=== PATIENT | female | born 1950 | race Caucasian/White ===

== ENCOUNTER → 2017-10-07 | Day surgery (SDC) | payer MEDICARE, BC ==
[~2017-10-07] MED LIST: AMLODIPINE BESY10 MG PO; BENICAR40 MG PO; CALCIUM600 MG PO; CIPROFLOXACIN250 MG PO; DEXAMETHASONE SOD PHOS INJ 4 MG/ML VIAL ONE; ESCITALOPRAM OX10 MG PO; FENTANYL CITRATE/PF 100MCG/2 ML INJ ONE; GENTAMICIN 80MG/NS 100 ML 100 ML IV ONE; IOPAMIDOL 610MG/1ML 300 MG/ML VIAL IV ONE; IRON PO; LEVOTHYROXINE25 MCG PO; LIDOCAINE HCL 2% LOCAL INJ 5 ML SDV VIAL INJ ONE; MEGASTROL PO; MEGESTROL ACETA40 MG PO; MYRBETRIQ50 MG PO; ONDANSETRON HCL INJ 2 MG/ML VIAL ONE; PROPOFOL IV EMULSION 10 MG/ML 20 ML VIAL ONE; SEVOFLURANE INHAL SOLN 250 ML PEN BTL ONE; SIMVASTATIN20 MG PO; ULTRAM 50MG50 MG PO; VITAMIN B-121000 MCG PO; VITAMIN D250000 UNIT PO
--- NOTE | 2017-10-07 08:16 | Diagnostic Imaging Report ---
PROCEDURE: X-RAY CHEST, TWO VIEWS COMPARISON: None. INDICATIONS: PREOPERATIVE CHEST XRAY FOR STENT SURGERY FINDINGS: Lungs are well-inflated. Trace linear opacity in the lingula which may reflect scar or subsegmental atelectasis. No consolidation, pleural effusion, or pneumothorax. Tortuosity and atherosclerotic calcification of the thoracic aorta. Normal heart size. No pulmonary edema. No acute osseous abnormality. Presumed chronic anterior compression deformity of T12 and L1, with vertebroplasty cement within the L1 vertebral body. Probable ureteral stent is partially visualized on the lateral radiograph, as are multiple upper abdominal surgical clips likely related to prior cholecystectomy. CONCLUSION: No acute cardiopulmonary abnormality. Dictated by: Abrahan Michel M.D. on 10/07/2017 at 8:15 Electronically approved by: Abrahan Michel M.D. on 10/07/2017 at 8:15
--- OUTSIDE RECORDS SUMMARY | 2017-10-07 09:06 | XMS REPORT | Clinical Summary ---
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 Disp. Refills Start End Date Status Date traMADol (ULTRAM) 50 mg Take 50 mg by mouth 4 Active tablet (four) times a day. simvastatin (ZOCOR) 20 MG Take 20 mg by mouth Active tablet nightly. olmesartan (BENICAR) 20 Take 20 mg by mouth Active MG tablet nightly. mirabegron (MYRBETIQ) 50 Take 50 mg by mouth Active mg tablet extended nightly. release 24 hr megestrol (MEGACE) 40 MG Take 40 mg by mouth 3 11/06/19 Active tablet (three) times a day. 16 levothyroxine (SYNTHROID, Take 25 mcg by mouth Active LEVOXYL) 25 mcg tablet daily. escitalopram (LEXAPRO) 10 Take 10 mg by mouth Active MG tablet daily. calcium carbonate Take 600 mg by mouth 2 Active (OS-NATHALIA) 600 mg calcium (two) times a day with (1,500 mg) tablet meals. iron, carbonyl, 45 mg Take 45 mg by mouth Active tablet daily. CYANOCOBALAMIN, VITAMIN Take 500 mcg by mouth 3 Active B-12, (VITAMIN B-12 ORAL) (three) times daily after meals. Tuesdays amLODIPine (NORVASC) 10 Take 10 mg by mouth Active mg tablet daily. ergocalciferol (VITAMIN Take 50,000 Units by Active D2) 50,000 unit capsule mouth once a week. Pt takes on tuesdays ciprofloxacin HCl (CIPRO) Take 250 mg by mouth Active 250 MG tablet daily. cyanocobalamin 1000 MCG Take 1,200 mcg by mouth 05/03/20 Discontin tablet daily. 17 ued cholecalciferol, vitamin Take 5,000 Units by mouth 06/16/20 Discontin D3, (VITAMIN D3) 1,000 daily. 17 ued unit tablet ascorbic acid, vitamin C, Take 500 mg by mouth 06/16/20 Discontin (VITAMIN C) 500 MG tablet daily. 17 ued amLODIPine (NORVASC) 5 mg Take 5 mg by mouth daily. 06/16/20 Discontin tablet 17 ued cefdinir (OMNICEF) 300 MG Take 1 capsule (300 mg 14 capsule 0 01/22/20 capsule total) by mouth 2 (two) 17 17 times a day for 7 days. cholecalciferol, vitamin Take 1,000 Units by mouth 06/16/20 Discontin D3, (VITAMIN D3) 1,000 3 (three) times a day. 17 ued unit tablet HYDROcodone-acetaminophen Take 1 tablet by mouth 30 tablet 0 05/07/20 06/06/20 (NORCO) 5-325 mg per every 4 (four) hours as 17 17 tablet needed for moderate pain for up to 30 days. Max Daily Amount: 6 tablets nitrofurantoin, Take 1 capsule (100 mg 20 capsule 0 05/07/20 macrocrystal-monohydrate, total) by mouth 2 (two) 17 17 (MACROBID) 100 MG capsule times a day for 10 days. docusate sodium (COLACE) Take 1 capsule (100 mg 30 capsule 0 05/07/20 06/06/20 100 MG capsule total) by mouth daily for 17 17 30 days. cephalexin (KEFLEX) 500 Take 1 capsule (500 mg 28 capsule 0 05/09/20 05/16/20 MG capsule total) by mouth 4 (four) 17 17 times a day for 7 days. phenazopyridine Take 1 tablet (200 mg 6 tablet 0 05/09/20 05/12/20 (PYRIDIUM) 200 MG tablet total) by mouth 3 (three) 17 17 times a day for 3 days. dicyclomine (BENTYL) 20 Take 1 tablet (20 mg 60 tablet 0 09/23/20 10 /23/20 mg tablet total) by mouth 2 (two) 17 17 times a day for 30 days. ondansetron ODT (ZOFRAN Take 1 tablet (4 mg 20 tablet 0 05/09/20 Discontin ODT) 4 MG disintegrating total) by mouth every 8 17 17 ued tablet (eight) hours as needed for nausea or vomiting for up to 30 doses. metFORMIN (GLUCOPHAGE) Take 500 mg by mouth 2 07/14/20 Discontin 500 mg tablet (two) times a day with 17 ued meals. ciprofloxacin HCl (CIPRO) Take 250 mg by mouth 06/18/20 Discontin 250 MG tablet daily. 17 ued acetaminophen-codeine Take 1 tablet by mouth 30 tablet 0 06/18/20 (TYLENOL WITH CODEINE #3) every 6 (six) hours as 17 17 300-30 mg per tablet needed for moderate pain for up to 7 days. fluconazole (DIFLUCAN) Take 1 tablet (100 mg 6 tablet 0 06/18/2004/05 100 MG tablet total) by mouth daily for 17 17 6 days. cefdinir (OMNICEF) 300 MG Take 1 capsule (300 mg 14 capsule 0 06/25/20 capsule total) by mouth 2 (two) 17 17 times a day for 7 days. Active Problems Problem Noted Date Sepsis 06/16/2017 Pyelonephritis 05/03/2017 Urinary tract infection 01/13/2017 Encounters Date Type Specialty Care Team Description 09/23/2017 Lab Lab Agapito Carreno, Preop examination (Primary Dx) 07/14/2017 [facility] Radiology Colt Briggs MD Acquired polyneuropathy Encounter 07/14/2017 Ancillary Colt Burgos MD Orders 07/06/2017 [facility] Radiology Colt Briggs MD Encounter 07/06/2017 Hospital Radiology Colt Briggs MD Encounter 07/06/2017 Transcribe Colt Burgos MD Acquired polyneuropathy Orders (Primary Dx) 07/06/2017 Procedure Pass Radiology 07/06/2017 Ancillary Radiology Colt Briggs MD Orders 06/17/2017 Anesthesia General Surgery Delta Real MD Event 06/17/2017 Procedure Pass General Surgery 06/17/2017 Surgery General Surgery Agapito Carreno, Cysto Stent CHANGE-RIGHT MD 06/16/2017 [facility] General Internal Medicine Jacob Marcelo MD Sepsis, due to - Encounter Araseli Jeter MD unspecified organism 06/18/2017 (Primary Dx); Acute UTI; Acute kidney injury; Stricture or kinking of ureter 05/09/2017 Emergency Emergency Medicine Anuja Shields, Urinary tract infection DO without hematuria, site unspecified (Primary Dx); Nausea, vomiting and diarrhea; Weakness 05/03/2017 [facility] General Surgery Joe Jessica, Pyelonephritis (Primary - Encounter MD Dx); 05/07/2017 Jacob Ulloa MD Flank pain; Artemio Ty MD Nausea and vomiting, intractability of vomiting not specified, unspecified vomiting type 03/10/2017 [facility] Surgery Agapito Carreno, Hydronephrosis with Encounter MD ureteral stricture 03/10/2017 Anesthesia General Surgery Delta Real MD Event 03/10/2017 Procedure Pass General Surgery 03/10/2017 Surgery General Surgery Agapito Carreno, Cystoscopy , With Ureteral MD Stent CHANGE - RIGHT SIDE 03/05/2017 Pre-Admit Pre-Admission Testing Agapito Carreno, Preoperative testing Testing (Primary Dx) Appointment 01/13/2017 [facility] General Internal Medicine Vargas Lozoya MD Urinary tract infection, - Encounter Araseli Jeter MD site unspecified (Primary 01/14/2017 Dx); Sepsis, due to unspecified organism 11/04/2016 [facility] General Surgery Agapito Carreno, Encounter 10/30/2016 Orders Only General Surgery Agapito Carreno MD after 10/06/2016 Immunizations Name Dates Previously Given Next Due FLUCELVAX QUAD PF (0.5mL 05/06/2017 syringe) Family History Medical History Relation Name Comments No Known Problems Father No Known Problems Mother No Known Problems Sister Relation Name Status Comments Father Mother Sister Social History Tobacco Use Types Packs/Day Years Used Date Never Smoker Smokeless Tobacco: Never Used Alcohol Use Drinks/Week oz/Week Comments Yes SOCIALLY Sex Assigned at Date Recorded Not on file Last Filed Vital Signs Vital Sign Reading Time Taken Blood Pressure 144/67 07/14/2017 1:40 PM LENS GRINDING MACHINE OPERATOR Pulse 96 07/14/2017 1:40 PM LENS GRINDING MACHINE OPERATOR Temperature 36.3 C (97.4 F) 07/14/2017 1:40 PM LENS GRINDING MACHINE OPERATOR Respiratory Rate 17 07/14/2017 1:40 PM LENS GRINDING MACHINE OPERATOR Oxygen Saturation 98% 07/14/2017 1:40 PM LENS GRINDING MACHINE OPERATOR Inhaled Oxygen - - Concentration Weight 74.8 kg (165 lb) 07/14/2017 9:55 AM LENS GRINDING MACHINE OPERATOR Height 162.6 cm (5' 4") 07/14/2017 9:55 AM LENS GRINDING MACHINE OPERATOR Body Mass Index 28.32 07/14/2017 9:55 AM LENS GRINDING MACHINE OPERATOR Plan of Treatment Health Maintenance Due Date Last Done Comments COLONOSCOPY 1998 MAMMOGRAM 1998 ZOSTER VACCINE 2008 PNEUMOCOCCAL 2013 POLYSACCHARIDE VACCINE AGE 65 AND OVER PNEUMOCOCCAL-13 2013 INFLUENZA VACCINE Completed 05/06/2017 Implants Implanted Type Area Battery Parts Assembler Device Expiration Model / Identifier Date Serial / Lot Stent Uretl Inlay Ethel 6fr 26cm Surgical Right: [employer] 2019 [id number] / W/ Nicore Herrera Gw Ltxf - [id number] Stents Ureter, DIVISION / Implanted: Qty: 1 on 03/10/2017 by Sunita [id number] Agapito Carreno MD Stent Ureteral Inlay Ethel 6.0fr Surgical Right: [employer] [id number] / 26cm Without Guidewire - [id number] Stents Ureter, DIVISION / Implanted: Qty: 1 on 06/17/2017 by Sunita [id number] Agapito Carreno MD Procedures Procedure Name Priority Date/Time Associated Diagnosis Comments NE AN ELECTIVE Routine 06/17/2017 SUPRAGLOTTIC AIRWAY 2:22 PM CDT Procedure Note - Lindsey Taylor MD - 06/17/2017 2:05 PM CDT Airway Date/Time: 06/17/2017 1:55 PM Performed by: MANUELA MANN Authorized by: MANUELA MANN Location: OR Urgency: Elective Difficult Airway: No Anesthesio logist: LINDSEY TAYLOR Resident/C RNA: MANUELA MANN Performed by: resident/C RNA Preoxygena malik with 100% O2: Yes C-spine Precaution s Maintained Throughout : Yes Mask Ventilatio n: Not attempted Final Airway Type: Supraglott ic airway Final LMA: Classic LMA Size: 3 Number of Attempts at Approach: 1 NE CRITICAL CARE, E/M Routine 06/16/2017 Results for this 30-74 MINUTES 4:20 PM CDT procedure are in the results section. NE AN ELECTIVE Routine 03/10/2017 SUPRAGLOTTIC AIRWAY 4:02 PM CDT Procedure Note - Delta Real MD - 03/10/2017 4:02 PM CDT Airway Date/Time: 03/10/2017 4:00 PM Performed by: DELTA REAL Authorized by: DELTA REAL Location: OR Urgency: Elective Performed by: anesthesio logist Preoxygena malik with 100% O2: Yes C-spine Precaution s Maintained Throughout : Yes Mask Ventilatio n: Easy mask Final Airway Type: Supraglott ic airway Final LMA: Classic LMA Size: 4 Number of Attempts at Approach: 1 after 10/06/2016 Results * ECG 12 lead (09/23/2017 10:32 AM) Only the most recent of 3 results within the time period is included. Component Value Ref Range Ventricular rate 79 Atrial rate 79 NE interval 156 QRSD interval 80 QT interval 364 QTC interval 417 P axis 1 27 QRS axis 1 32 T wave axis 54 EKG impression Normal sinus rhythm-Low voltage QRS-Borderline ECG-In automated comparison with ECG of 16-JUN-2017 00:15,-Non-specific change in ST segment in Inferior leads- Specimen Performing Laboratory [facility] [address] [place] [id number] * Surgical pathology request (07/14/2017 12:08 PM) Only the most recent of 3 results within the time period is included. Component Value Ref Range Surgical pathology report See link below for PDF Lab Report Result status This is Final Report to [id number] Specimen Performing Laboratory [facility] [address] [place] [address] * IR Kyphoplasty Lumbar (07/14/2017 11:48 AM) Specimen Performing Laboratory [facility] [address] [place] [address] Narrative VERTEBRAL AUGMENTATION OF L1 EXAMINATION:IR KYPHOPLASTY FST VERT BODY LUMBA FLUOROSCOPIC-GUIDED CEMENT AUGMENTATION AND INTERNAL FIXATION OF L1 COMPRESSION FRACTURE WITH VERTEBROPLASTY. CLINICAL HISTORY:G62.9 Polyneuropathyunspecified, G62.9 COMPARISON:None. CLINICAL HISTORY:Back pain. MRI shows acute compression Fracture of L1 level. EXAMINATIONIR KYPHOPLASTY FST VERT BODY LUMBA PREOPERATIVE DIAGNOSIS: Osteoporotic compression fracture of L1 vertebral body with severe back pain. POSTOPERATIVE DIAGNOSIS:Same. BLOOD LOSS:Less than 10 cc COMPLICATIONS:None. CONSENT: After discussion of the radiographic findings and the compression fracture of L1 vertebral body with patient and her family, we have decided to treat the compression fracture with Percutaneous vertebroplasty for fracture reduction and internal fixation. The patient and the members of the immediate family understood the risks and benefits of the procedure. Informed consent was obtained. Conscious sedation:After the risks and benefits of conscious sedation were discussed, midazolam and fentanyl were administered intravenously. Throughout the conscious sedation duration, the patient was continuously monitored by a registered nurse. The physician intraservice [id number] time with the patient was 18 minutes. PROCEDURE DESCRIPTION: The patient was brought to the Fluoroscopy Suite and placed on the fluoroscopy table in prone position. The thoracolumbar region was prepped and draped in standard sterile fashion. The imaging intensifiers were placed in both AP and lateral fluoroscopic planes. Transpedicular approach was utilized to access the L1 vertebral compression fractures on the left. The skin over the left pedicleof L1 level were infiltrated with 2% buffered lidocaine. Deep infiltration into the periosteum of L1 was achieved. A 10 gauge entry needle was placed into the posterior aspect of the body of L1 level via transpedicular approach. Positioning was confirmed in both AP and lateral planes simultaneously. Following satisfactory placement of the needles, the Stylet was removed and a cavity was created using osteotomeand bone biopsy was obtained of L1.Subsequently, under fluoroscopic imaginginternal fixation was achieved through injection of bone cement, namely polymethylmethacrylate (PMMA) was total of 4 cc injected. There was no evidence of cement extravasation or any complication. Proper cement distribution in the fractured L1 vertebral body was achieved. The cannulas were then removed. POST-PROCEDURE: All incisions were closed with Steri-Strips and pressure dressing. The patient was kept in the prone position for approximately 10 minutes. The patient was then turned supine, monitored briefly and returned to the post-procedure monitoring unit. The patient was awake and moving all extremities and at this time showed no neurologic deficit. No complications were encountered. Blood loss was noted to be minimal. IMPRESSION: Successful uncomplicated fluoroscopic-guided Vertebral augmentation, internal fixation and biopsy of K1ixuncytrwev fracture. There was adequate cement distribution in the fracture body and no evidence of complications. Fluoroscopy time was 6.9 minutes Total fluoroscopic exposure images was 12 images. Total radiation exposure was 186 mGy. [facility] [id number] Procedure Note Hm Interface, Radiology Results Incoming - 07/14/2017 2:34 PM LENS GRINDING MACHINE OPERATOR VERTEBRAL AUGMENTATION OF L1 EXAMINATION: IR KYPHOPLASTY FST VERT BODY LUMBA FLUOROSCOPIC-GUIDED CEMENT AUGMENTATION AND INTERNAL FIXATION OF L1 COMPRESSION FRACTURE WITH VERTEBROPLASTY. CLINICAL HISTORY: G62.9 Polyneuropathy unspecified, G62.9 COMPARISON: None. CLINICAL HISTORY: Back pain. MRI shows acute compression Fracture of L1 level. EXAMINATION IR KYPHOPLASTY FST VERT BODY LUMBA PREOPERATIVE DIAGNOSIS: Osteoporotic compression fracture of L1 vertebral body with severe back pain. POSTOPERATIVE DIAGNOSIS: Same. BLOOD LOSS: Less than 10 cc COMPLICATIONS: None. CONSENT: After discussion of the radiographic findings and the compression fracture of L1 vertebral body with patient and her family, we have decided to treat the compression fracture with Percutaneous vertebroplasty for fracture reduction and internal fixation. The patient and the members of the immediate family understood the risks and benefits of the procedure. Informed consent was obtained. Conscious sedation: After the risks and benefits of conscious sedation were discussed, midazolam and fentanyl were administered intravenously. Throughout the conscious sedation duration, the patient was continuously monitored by a registered nurse. The physician intraservice [id number] time with the patient was 18 minutes. PROCEDURE DESCRIPTION: The patient was brought to the Fluoroscopy Suite and placed on the fluoroscopy table in prone position. The thoracolumbar region was prepped and draped in standard sterile fashion. The imaging intensifiers were placed in both AP and lateral fluoroscopic planes. Transpedicular approach was utilized to access the L1 vertebral compression fractures on the left. The skin over the left pedicleof L1 level were infiltrated with 2% buffered lidocaine. Deep infiltration into the periosteum of L1 was achieved. A 10 gauge entry needle was placed into the posterior aspect of the body of L1 level via transpedicular approach. Positioning was confirmed in both AP and lateral planes simultaneously. Following satisfactory placement of the needles, the Stylet was removed and a cavity was created using osteotome and bone biopsy was obtained of L1.Subsequently, under fluoroscopic imaging internal fixation was achieved through injection of bone cement, namely polymethylmethacrylate (PMMA) was total of 4 cc injected. There was no evidence of cement extravasation or any complication. Proper cement distribution in the fractured L1 vertebral body was achieved. The cannulas were then removed. POST-PROCEDURE: All incisions were closed with Steri-Strips and pressure dressing. The patient was kept in the prone position for approximately 10 minutes. The patient was then turned supine, monitored briefly and returned to the post-procedure monitoring unit. The patient was awake and moving all extremities and at this time showed no neurologic deficit. No complications were encountered. Blood loss was noted to be minimal. IMPRESSION: Successful uncomplicated fluoroscopic-guided Vertebral augmentation, internal fixation and biopsy of L1 compression fracture. There was adequate cement distribution in the fracture body and no evidence of complications. Fluoroscopy time was 6.9 minutes Total fluoroscopic exposure images was 12 images. Total radiation exposure was 186 mGy. [id number] * Estimated GFR (07/14/2017 9:48 AM) Only the most recent of 13 results within the time period is included. Component Value Ref Range GFR Non Af Amer 26 (A) mL/min/1.73 m2 GFR Af Amer 32 (A) mL/min/1.73 m2 Comment: Chronic kidney disease: <60 mL/min/1.73m2 Kidney failure: <15 mL/min/1.73m2 The estimated GFR is calculated from the IDMS-traceable Modification of Diet in Renal Disease Equation. The accuracy of the calculation is poor when the creatinine is normal. Calculated values >90 mL/min/1.73m2 are not reported. This equation has not been validated in children (<18 years), women, the elderly (>70 years), or ethnic groups other than Caucasians and Americans. Specimen Performing Laboratory Plasma specimen [facility] [address] [place] [address] * Partial thromboplastin time, activated (07/14/2017 9:48 AM) Only the most recent of 4 results within the time period is included. Component Value Ref Range PTT 38.8 (H) 23.0 - 36.0 sec Comment: PTT therapeutic range for unfractionated heparin is 61.0-112.0 seconds which corresponds to Anti-Xa 0.3-0.7 U/ml. Note: Change in Panic Value The PTT Panic Value is changing from 110 sec. to 100 sec. due to new instrumentation and reagents. Correlation studies have been performed to validate this result. Specimen Performing Laboratory Blood [facility] [address] [place] [address] * Prothrombin time with INR (07/14/2017 9:48 AM) Only the most recent of 6 results within the time period is included. Component Value Ref Range Prothrombin time 13.8 12.0 - 15.0 sec INR 1.05 0.92 - 1.12 Comment: For patients on anticoagulant therapy, reference ranges below: Indication: INR Value Treatment of Venous Thrombosis, 2.0-3.0 pulmonary emboli, or prophylaxis of a venous thrombosis, or systemic emboli. High dose, high risk patients 3.0-4.5 with mechanical valves. NOTE: INR values over 3.0 are sometimes associated with gastrointestinal hemorrhage, especially values over 4.0. Specimen Performing Laboratory Blood [facility] [address] [place] [address] * CBC with platelet and differential (07/14/2017 9:48 AM) Only the most recent of 13 results within the time period is included. Component Value Ref Range WBC 6.6 4.2 - 11.0 k/uL RBC 3.62 (L) 4.04 - 5.86 m/uL HGB 11.2 (L) 11.5 - 15.3 g/dL HCT 34.9 34.0 - 45.0 % MCV 96.4 80.0 - 98.0 fL MCH 30.9 27.0 - 34.0 pg MCHC 32.1 31.5 - 36.5 g/dL RDW - SD 51.9 (H) 37.0 - 51.0 fL MPV 9.7 7.4 - 10.4 fL Platelet count 243 150 - 400 k/uL Nucleated RBC 0.00 /100 WBC Neutrophils 59.5 36.0 - 66.0 % Lymphocytes 26.1 24.0 - 44.0 % Monocytes 8.9 (H) 0.0 - 6.0 % Eosinophils 4.1 0.0 - 6.0 % Basophils 0.9 0.0 - 1.2 % Immature granulocytes 0.5 0.0 - 1.0 % Specimen Performing Laboratory Blood [facility] [address] [place] [address]. [place] [id number] * Basic metabolic panel (07/14/2017 9:48 AM) Only the most recent of 9 results within the time period is included. Component Value Ref Range Sodium 141 135 - 150 mEq/L Potassium 4.6 3.5 - 5.0 mEq/L Chloride 108 100 - 109 mEq/L CO2 25 24 - 32 mmol/L Anion gap 8 7 - 15 mEq/L Comment: Starting from November , anion gap calculation no longer incorporates potassium. Please note the change. BUN 34 (H) 7 - 18 mg/dL Creatinine 1.9 (H) 0.8 - 1.5 mg/dL Glucose 113 (H) 65 - 100 mg/dL Calcium 9.8 8.6 - 10.7 mg/dL Specimen Performing Laboratory Plasma specimen [facility] [address] [place] [address] * MRI Spine External Study (07/03/2017 12:38 PM) [place] [address] Narrative This exam was not acquired at a [facility]ologist facility and has not been interpreted by a Scientologist Provider.The exam was imported into our imaging system for comparisons purposes. * XR Spine External Study (06/25/2017 12:26 PM) [place] [address] Narrative This exam was not acquired at a [facility] facility and has not been interpreted by a Scientologist Provider.The exam was imported into our imaging system for comparisons purposes. * POC glucose (06/18/2017 11:18 AM) Only the most recent of 9 results within the time period is included. Component Value Ref Range POC glucose 122 (H) 65 - 100 mg/dL Comment: Meter ID: [id number] Grain Weigher: Samantha Tang Specimen Performing Laboratory [facility] [address] [place], [place] [id number] * ECG ED Preliminary Interpretation - NOT AN ORDER (06/16/2017 4:20 PM) Wei Marcelo MD 06/16/20174:20 PM ECG ED Preliminary Interpretation - Not an Order Performed by: JACOB MARCELO Authorized by: JACOB MARCELO ECG reviewed by ED Physician in the absence of a engineering mgr: yes Previous ECG: Previous ECG:Unavailable Interpretation: Interpretation: normal Rate: ECG rate assessment: normal Rhythm: Rhythm: sinus rhythm Ectopy: Ectopy: none QRS: QRS axis:Normal QRS intervals:Normal Conduction: Conduction: normal ST segments: ST segments:Normal T waves: T waves: inverted Inverted:III * Consult to Sepsis Response Team (06/16/2017 4:20 PM) Only the most recent of 2 results within the time period is included. Narrative Jacob Marcelo MD 06/16/20174:20 PM Consult to Sepsis Response Team Performed by: JACOB MARCELO Authorized by: JACOB MARCELO Sepsis Clinical Assessment SIRS Criteria SIRS criteria met: Heart rate > 90 bpm and WBC > 12 K/mcL Organ Dysfunction Organ dysfunction criteria met: Creatinine > 2.0 mg/dL and Lactate > 2.0 mmol/L Sepsis Assessment Clinical suspicion of sepsis?: Yes Sepsis staging:Sepsis Sepsis protocol started?Yes Where did the protocol start?:ED Started Sepsis Related Vitals Heart rate: 102 Temperature: 99.2 F Respiratory rate: 18 Blood pressure: 166/72 Altered mental status: WBC (k/uL) Date Value 06/16/2017 13.3 (H)05/09/2017 7.7 Weight-Based Fluid Bolus Calculation The recommended weight-based bolus volume: 2,244 mL (dosing weight) Please refer to the MAR for actual med/fluid administrations. * CRITICAL CARE (06/16/2017 4:20 PM) Narrative Jacob Marcelo MD 06/16/20174:20 PM Critical Care Performed by: JACOB MARCELO Authorized by: JACOB MARCELO Critical care provider statement: Critical care time (minutes):35 Critical care start time:06/16/2017 2:05 AM Critical care end time:06/16/2017 2:40 AM Critical care time was exclusive of:Separately billable procedures and treating other patients Critical care was necessary to treat or prevent imminent or life-threatening deterioration of the following conditions:Sepsis, dehydration and renal failure Critical care was time spent personally by me on the following activities:Ordering and performing treatments and interventions, ordering and review of laboratory studies, ordering and review of radiographic studies, pulse oximetry, re-evaluation of patient's condition, review of old charts, examination of patient, evaluation of patient's response to treatment, discussions with primary provider and discussions with consultants Robert 'yes' if you are taking over critical care for this patient from another provider.: no * Lactic acid level (06/16/2017 6:41 AM) Only the most recent of 4 results within the time period is included. Component Value Ref Range Lactic acid 2.0 0.5 - 2.2 mmol/L Comment: Results called to and read back by EBENEZER DE LEON RN, at 07:41 06/16/2017 by [email or web address] TOLD BY VISUAL AID EXPERT TO CALL NURSE, VISUAL AID EXPERT WAS IN A CODE. Specimen Performing Laboratory Blood [facility] [address] [place] [address] * Urinalysis screen and microscopy, with reflex to culture (06/16/2017 4:19 AM) Only the most recent of 4 results within the time period is included. Component Value Ref Range Specimen site Catheterized Color, UA Straw Appearance, UA Clear Specific gravity, UA 1.015 1.001 - 1.035 pH, UA 5.0 5.0 - 8.5 Protein, UA Negative Negative Glucose, UA Negative Negative Ketones, UA Negative Negative Bilirubin, UA Negative Negative Blood, UA Small (A) Negative Nitrite, UA Negative Negative Urobilinogen, UA Negative <2.0 Leukocyte esterase, UA Moderate (A) Negative Epithelial cells, UA Few /HPF Round epithelial cells, Few 0 - 1 /HPF UA WBC, UA 36 (H) 0 - 5 /HPF RBC, UA 7 (H) 0 - 5 /HPF Bacteria, UA None seen None seen WBC clumps, UA Few (A) Yeast, UA None seen Yeast with pseudohyphae, None seen UA Specimen Performing Laboratory Urine [facility] [address] [place] [address] * Gram stain (06/16/2017 4:19 AM) Only the most recent of 4 results within the time period is included. Component Value Ref Range Gram stain result Few WBC's No organisms seen Comment: Specimen Information Specimen Source: Urine Specimen Site: See UA Specimen Performing Laboratory Urine [facility] DEPARTMENT OF PATHOLOGY AND GENOMIC MEDICINE [address] [place] [address] * Urine culture (06/16/2017 4:19 AM) Only the most recent of 4 results within the time period is included. Component Value Ref Range Urine culture isolate Yeast 10-1 cfu/ml (A) Comment: Specimen Information Specimen Source: Urine Specimen Site: See UA Urine culture isolate Gram positive luis m 10-3 cfu/ml (A) Specimen Performing Laboratory Urine [facility] DEPARTMENT OF PATHOLOGY AND GENOMIC MEDICINE [address] [place] [address] * Blood culture, aerobic & anaerobic (06/16/2017 4:05 AM) Only the most recent of 6 results within the time period is included. Component Value Ref Range Blood culture isolate No growth after 5 days of incubation. Comment: Specimen Information Specimen Source: Blood Specimen Site: Peripheral Forearm Right Specimen Performing Laboratory Blood [facility] DEPARTMENT OF PATHOLOGY AND GENOMIC MEDICINE [address] [place] [address] * CT Abdomen Pelvis Wo Contrast (06/16/2017 1:51 AM) Only the most recent of 2 results within the time period is included. Specimen Performing Laboratory [facility] [address] [place] [address] Narrative EXAMINATION:CT ABDOMEN PELVIS WO CONTRAST CLINICAL HISTORY:hx of ureteral obstruction and sepsis now with recurrent symptoms TECHNIQUE: Multiple axial images of the abdomen and pelvis were obtained without intravenous administration of iodinated contrast. Sagittal and coronal computerized reformatted images were also obtained. The lack of intravenous contrast reduces the sensitivity of detecting solid organ disease. CT imaging was performed with iterative reconstruction technique and/or automated exposure control to reduce radiation dose. COMPARISON:05/03/2017 IMPRESSION: Mild bibasilar atelectasis/scarring. In the right lower lobe, a 4 mm nodule is identified. Just adjacent, a 3 mm nodule is seen. In the left lower lobe, a 6 mm nodule is seen. These nodules are stable since 07/30/2016. Coronary artery calcifications are identified. Patient is status post cholecystectomy. Liver, spleen, pancreas, adrenal glands are normal. A right double-J internal ureteral stent is identified. There is right hydronephrosis that has increased since 05/03/2017. These findings raise suspicion for urinary tract infection and/or stent failure. Left kidney and ureter are normal. Bladder is unremarkable. Trace fluid is seen in the pelvis. No free intraperitoneal air. Atherosclerotic vascular calcifications are seen. A few diverticula are seen without diverticulitis. The appendix is normal. No gastrointestinal tract obstruction. No acute osseous abnormalities. Chronic bilateral pars defects are seen of L5. Old compression deformity of superior endplate of L4 is unchanged since prior exam. CONCLUSION: Right double-J internal ureteral stent is identified. Right-sided hydronephrosis has increased since 05/03/2017. These findings raise concern for urinary tract infection and/or stent failure. A few nodules are seen in the lung bases, the largest is in the left lower lobe measuring 6 mm. A 12 month follow-up CT chest is recommended to assess stability. [facility]-[id number] Procedure Note Hm Interface, Radiology Results Incoming - 06/16/2017 2:23 AM CDT EXAMINATION: CT ABDOMEN PELVIS WO CONTRAST CLINICAL HISTORY: hx of ureteral obstruction and sepsis now with recurrent symptoms TECHNIQUE: Multiple axial images of the abdomen and pelvis were obtained without intravenous administration of iodinated contrast. Sagittal and coronal computerized reformatted images were also obtained. The lack of intravenous contrast reduces the sensitivity of detecting solid organ disease. CT imaging was performed with iterative reconstruction technique and/or automated exposure control to reduce radiation dose. COMPARISON: 05/03/2017 IMPRESSION: Mild bibasilar atelectasis/scarring. In the right lower lobe, a 4 mm nodule is identified. Just adjacent, a 3 mm nodule is seen. In the left lower lobe, a 6 mm nodule is seen. These nodules are stable since 07/30/2016. Coronary artery calcifications are identified. Patient is status post cholecystectomy. Liver, spleen, pancreas, adrenal glands are normal. A right double-J internal ureteral stent is identified. There is right hydronephrosis that has increased since 05/03/2017. These findings raise suspicion for urinary tract infection and/or stent failure. Left kidney and ureter are normal. Bladder is unremarkable. Trace fluid is seen in the pelvis. No free intraperitoneal air. Atherosclerotic vascular calcifications are seen. A few diverticula are seen without diverticulitis. The appendix is normal. No gastrointestinal tract obstruction. No acute osseous abnormalities. Chronic bilateral pars defects are seen of L5. Old compression deformity of superior endplate of L4 is unchanged since prior exam. CONCLUSION: Right double-J internal ureteral stent is identified. Right-sided hydronephrosis has increased since 05/03/2017. These findings raise concern for urinary tract infection and/or stent failure. A few nodules are seen in the lung bases, the largest is in the left lower lobe measuring 6 mm. A 12 month follow-up CT chest is recommended to assess stability. [facility]-[id number] * Troponin (06/16/2017 1:12 AM) Component Value Ref Range Troponin <0.01 0.00 - 0.60 ng/mL Comment: 0.11 - 1.49 ng/ml May indicate increased risk of acute coronary syndrome. >=1.5 ng/ml Consistent with acute myocardial infarction. The diagnostic value of a single normal or non-diagnostic result is questionable. Serial samples at 2-6 hour intervals are required to rule out acute myocardial injury. Specimen Performing Laboratory Plasma specimen [facility] [address] [place] [address] * Lipase level (06/16/2017 1:12 AM) Only the most recent of 2 results within the time period is included. Component Value Ref Range Lipase 220 65 - 230 U/L Specimen Performing Laboratory Plasma specimen [facility] [address] [place] [address] * Creatine kinase, total (CPK) (06/16/2017 1:12 AM) Component Value Ref Range Creatine kinase 58 (L) 61 - 224 U/L Specimen Performing Laboratory Plasma specimen [facility] [address] [place] [address] * Comprehensive metabolic panel (06/16/2017 1:12 AM) Only the most recent of 4 results within the time period is included. Component Value Ref Range Sodium 141 135 - 150 mEq/L Potassium 4.2 3.5 - 5.0 mEq/L Chloride 107 100 - 109 mEq/L CO2 22 (L) 24 - 32 mmol/L Anion gap 12 7 - 15 mEq/L Comment: Starting from November , anion gap calculation no longer incorporates potassium. Please note the change. BUN 39 (H) 7 - 18 mg/dL Creatinine 2.5 (H) 0.8 - 1.5 mg/dL Glucose 156 (H) 65 - 100 mg/dL Calcium 9.3 8.6 - 10.7 mg/dL Protein 8.5 (H) 6.3 - 8.2 g/dL Albumin 4.2 3.2 - 5.0 g/dL A/G ratio 1.0 0.7 - 3.8 Alkaline phosphatase 53 30 - 120 U/L AST 12 (L) 15 - 37 U/L ALT 26 (L) 30 - 65 U/L Total bilirubin 0.7 0.2 - 1.2 mg/dL Specimen Performing Laboratory Plasma specimen [facility] [address] [place] [address] * Magnesium level (05/09/2017 10:19 AM) Only the most recent of 2 results within the time period is included. Component Value Ref Range Magnesium 1.80 1.60 - 2.40 mg/dL Specimen Performing Laboratory Plasma specimen [facility] [address] [place] [address] * FL Pyelogram Retrograde (03/10/2017 5:08 PM) Specimen Performing Laboratory [facility] [address] [place] [address] Narrative Procedure: FL PYELOGRAM RETROGRADE REFERRING PHYSICIAN: AGAPITO CARRENO IMPRESSION: A single intraoperative fluoroscopic spot image was submitted for interpretation. The procedure was performed by Dr. Mehta. Approximately 0.36 minute of fluoroscopy time and 50 cc of Omnipaque 300 were used. The intraoperative fluoroscopic spot image shows a right double-J ureter stent partially imaged. Please refer to the intraoperative report for detailed discussion and findings. [id number] Procedure Note Interface, Radiology Results Incoming - 03/10/2017 6:53 PM CDT Procedure: FL PYELOGRAM RETROGRADE REFERRING PHYSICIAN: AGAPITO CARRENO IMPRESSION: A single intraoperative fluoroscopic spot image was submitted for interpretation. The procedure was performed by Dr. Mehta. Approximately 0.36 minute of fluoroscopy time and 50 cc of Omnipaque 300 were used. The intraoperative fluoroscopic spot image shows a right double-J ureter stent partially imaged. Please refer to the intraoperative report for detailed discussion and findings. [id number] * Calculi analysis with photo (03/10/2017 4:19 PM) Component Value Ref Range Calculi mass 5 mg Calculi number 6 Calculi size 1 to 4 mm Calculi descrption See Note Comment: Specimen consists of six, small, orange, irregular calculi fragments. Calculi composition See Note Comment: Calculi composed primarily of uric acid. INTERPRETIVE INFORMATION: Calculi (Stone) analysis Calculi are the products of physiological processes that yield crystalline compounds in a matrix of biological compounds and blood. Matrix components are not reported. The clinically significant crystalline components identified in calculi specimens are reported. Gross description may not be consistent with composition determined by FTIR analysis. EER calculi (stone) See Note analysis and photo Comment: Access [facility] Enhanced Report using either link below: -Direct access: [email or web address] -Enter Username, Password: [email or web address] Username: [email or web address] Password: [email or web address] Performed by [employer], [address] [place] [id number] [email or web address], Nadeem Drummond MD - Lab. Director Specimen Performing Laboratory [facility] [address] [place] [address] Narrative [id number] * Phosphorus level (01/14/2017 5:59 AM) Component Value Ref Range Phosphorus 3.2 2.5 - 4.5 mg/dL Specimen Performing Laboratory Plasma specimen [facility] [address] [place] [address] * hCG qualitative, urine screen (01/13/2017 9:11 AM) Component Value Ref Range hCG qualitative, urine Negative Negative Comment: The manufacturers stated sensitivity of HcG test for serum is >/=10 mIU/ml and urine is >/=20mIU/ml. Specimen Performing Laboratory Urine [facility] [address] [place] [address] Narrative LACID CALLED TO FEDERICO FRIEND [phone]:[id number] * Bilirubin direct (01/13/2017 9:11 AM) Component Value Ref Range Bilirubin direct 0.3 0.0 - 0.4 mg/dL Specimen Performing Laboratory Plasma specimen [facility] [address] [place] [address] * CT Renal Stone Protocol (01/13/2017 8:58 AM) Specimen Performing Laboratory [facility] [address] [place] [address] Narrative EXAMINATION:CT RENAL STONE PROTOCOL CLINICAL HISTORY:l flank and llq paininc cr TECHNIQUE:Multiple axial CT images of the abdomen and pelvis are obtained without the use of intravenous contrast. Coronal and sagittal 3-D reconstructions are obtained. CT scans are performed using radiation dose reduction techniques.Technical factors are evaluated and adjusted to ensure appropriate moderation of exposure. Automated dose management technology is applied to adjust radiation exposure while achieving a diagnostic quality image. COMPARISON:July 2016 FINDINGS: Abdomen: The evaluation of the solid organs is limited without the use of intravenous contrast. The visualized lower lung zones are clear. The gallbladder has been removed.. The CT appearance of the liver, spleen, pancreas and adrenal glands is unremarkable . The abdominal aorta has no aneurysmal dilatation. There is no retroperitoneal adenopathy. The left kidney does not have any stones or any hydronephrosis. The right kidney has a right ureteral stent that extends from the right kidney to the bladder. There are no stones seen within the right kidney. There is minimal dilatation of the right renal pelvis. CT Pelvis: There is no evidence of any pneumoperitoneum. Stomach does not demonstrate any wall thickening. There is no bowel obstruction nor any dilated loops of bowel. There is no free fluid seen within abdomen and pelvis. The bladder has a ureteral stent present. There are no stones seen within the bladder. The appendix is visualized and is unremarkable. There is no bowel obstruction nor any dilated loops of bowel. IMPRESSION: 1. There is a right ureteral stent seen extending from the right renal pelvis to the bladder. 2. Minimal hydronephrosis is present within the right renal pelvis. 3. The left kidney does not have any stones or any hydronephrosis. 4. There are no ureteral or bladder stones present. 5. There is no bowel obstruction nor any dilated loops of bowel. [id number] Procedure Note Hm Interface, Radiology Results Incoming - 01/13/2017 9:13 AM CDT EXAMINATION: CT RENAL STONE PROTOCOL CLINICAL HISTORY: l flank and llq pain inc cr TECHNIQUE: Multiple axial CT images of the abdomen and pelvis are obtained without the use of intravenous contrast. Coronal and sagittal 3-D reconstructions are obtained. CT scans are performed using radiation dose reduction techniques. Technical factors are evaluated and adjusted to ensure appropriate moderation of exposure. Automated dose management technology is applied to adjust radiation exposure while achieving a diagnostic quality image. COMPARISON: July 2016 FINDINGS: Abdomen: The evaluation of the solid organs is limited without the use of intravenous contrast. The visualized lower lung zones are clear. The gallbladder has been removed.. The CT appearance of the liver, spleen, pancreas and adrenal glands is unremarkable . The abdominal aorta has no aneurysmal dilatation. There is no retroperitoneal adenopathy. The left kidney does not have any stones or any hydronephrosis. The right kidney has a right ureteral stent that extends from the right kidney to the bladder. There are no stones seen within the right kidney. There is minimal dilatation of the right renal pelvis. CT Pelvis: There is no evidence of any pneumoperitoneum. Stomach does not demonstrate any wall thickening. There is no bowel obstruction nor any dilated loops of bowel. There is no free fluid seen within abdomen and pelvis. The bladder has a ureteral stent present. There are no stones seen within the bladder. The appendix is visualized and is unremarkable. There is no bowel obstruction nor any dilated loops of bowel. IMPRESSION: 1. There is a right ureteral stent seen extending from the right renal pelvis to the bladder. 2. Minimal hydronephrosis is present within the right renal pelvis. 3. The left kidney does not have any stones or any hydronephrosis. 4. There are no ureteral or bladder stones present. 5. There is no bowel obstruction nor any dilated loops of bowel. [id number] * FL < 1 Hour (11/04/2016 3:15 PM) Specimen Performing Laboratory [facility] [address] [place] [address] Narrative IMPRESSION:C-arm\\XA0\\Fluoroscopy under 1 hour was provided in the OR for\\XA0\\the referring physician.A radiologist was not present during the procedure. Refer to the Operative report issued by the performing provider for procedure details. Procedure Note Interface, Radiology Conversion - 11/04/2016 3:21 PM CDT IMPRESSION: C-arm\\XA0\\Fluoroscopy under 1 hour was provided in the OR for\\XA0\\the referring physician. A radiologist was not present during the procedure. Refer to the Operative report issued by the performing provider for procedure details. after 10/06/2016 Insurance Payer Benefit Subscriber ID Type Phone Address Plan / Group HUMANA MEDICARE HUMANA xxxxxxxxx PPO MEDICARE PPO/PFFS/E [facility] BCBS xxxxxxxxx PPO CHOICE PPO/SAUL JARQUIN PPO
--- OUTSIDE RECORDS SUMMARY | 2017-10-07 09:06 | XMS REPORT ---
Author Author [facility] Address Unknown Phone Unavailable Care Team Providers Care Integrity Manager Name Role Phone PEGGY CARRENO Unavailable Unavailable Problems This patient has no known problems. Allergies, Adverse Reactions, Alerts This patient has no known allergies or adverse reactions. Medications This patient has no known medications. Results Test Description Test Time Test Comments Text Results Atomic Results Result Comments CHEST 2 VIEWS [place] [address] Patient Name: TANA MORA MR #: [id number] : 1950 Age/Sex: 67/F Req #: [id number] Adm Physician: Ordered by: HASEEB NOEL MD Report #: [id number] Location: OR Room/Bed: Procedure: [id number] DX/ CHEST 2 VIEWS Exam Date: 10/07/17 Exam Time: 0745 REPORT STATUS: Signed PROCEDURE: X-RAY CHEST, TWO VIEWS COMPARISON: None. INDICATIONS: PREOPERATIVE CHEST XRAY FOR STENT SURGERY FINDINGS: Lungs are well-inflated. Trace linear opacity in the lingula which may reflect scar or subsegmental atelectasis. No consolidation, pleural effusion, or pneumothorax. Tortuosity and atherosclerotic calcification of the thoracic aorta. Normal heart size. No pulmonary edema. No acute osseous abnormality. Presumed chronic anterior compression deformity of T12 and L1, with vertebroplasty cement within the L1 vertebral body. Probable ureteral stent is partially visualized on the lateral radiograph, as are multiple upper abdominal surgical clips likely related to prior cholecystectomy. CONCLUSION: No acute cardiopulmonary abnormality. Dictated by: Yee Vegas M.D. on 10/07/2017 at 8:15 Electronically approved by: Yee Vegas M.D. on 10/07/2017 at 8:15 Dictated By: YEE VEGAS MD 4 Transcribed By: ANTHONY on 10/07/17814 COPY TO: HASEEB NOEL MD
--- NOTE | 2017-10-07 13:02 | Operative Report ---
DATE OF PROCEDURE: October 07, 2017 PREOPERATIVE DIAGNOSES 1. History of endometrial carcinoma with metastatic disease. 2. Right hydronephrosis. 3. Obstruction of right ureter at junction of the right lower and mid ureter. 4. Right double-J ureteral stent. POSTOPERATIVE DIAGNOSES 1. History of endometrial carcinoma with metastatic disease. 2. Right hydronephrosis. 3. Obstruction of right ureter at junction of the right lower and mid ureter. 4. Right double-J ureteral stent. OPERATION 1. Cystourethroscopy and stent removal. 2. Insertion of new right double-J ureteral stent, 6 Nigerien x 26 cm. [employer] ROOFER: Dr. Torres ANESTHETIC: General. INDICATIONS: Ms. Glez is a 67-year-old female who is very well known to me with a history of endometrial carcinoma. She has been treated successfully at [facility]. At the same time, she presented with right hydronephrosis and obstruction at the level of the right mid and lower ureter. She had a right double-J stent and is currently changed every 4 to 6 months. She presented at this time for the stent change. DESCRIPTION OF PROCEDURE: This patient was placed on the table in the lithotomy position and was prepped and draped in a sterile manner after satisfactory anesthesia. A #23-Nigerien cystoscope was used, and cystourethroscopy was performed. The tail end of the stent was protruding from the right ureteral orifice, which is normal. Under direct vision and fluoroscopic control, the tail end of the stent was grasped and removed completely under fluoroscopic and direct. A 0.38 flexible-tip Glidewire was then passed through the working channel of the cystoscope through the right ureteral orifice. Then under direct and fluoroscopic control, it was passed all the way up to the renal pelvis. A 6-Nigerien x 26-cm double-J stent was then threaded over the guidewire through the working channel of the cystoscope through the right ureteral orifice. Again, under direct vision and fluoroscopic control, it was passed all the way up to the renal pelvis, leaving the upper end of the stent in the renal pelvis and the lower end of the stent in the bladder. The bladder was drained. The cystoscope was removed. The patient was taken to the recovery room in satisfactory condition. Plan for this patient is to continue on Cipro 250 mg every night, Myrbetriq 50 mg once a day, tramadol 1 every 6 to 8 hours p.r.n. besides all her other meds. She is to return to the office in 1 month. Job#: [id number]
== END | disposition home or self-care (01) ==
LOC: OR 09:03
PROVIDERS: ATTEND Specialist
DX: N13.2 Hydronephrosis with renal and ureteral calculous obstruction (principal); Z46.6 Encounter for fitting and adjustment of urinary device; C34.90 Malignant neoplasm of unspecified part of unspecified bronchus or lung; C79.9 Secondary malignant neoplasm of unspecified site; M19.90 Unspecified osteoarthritis, unspecified site; E03.9 Hypothyroidism, unspecified; I10 Essential (primary) hypertension; E78.5 Hyperlipidemia, unspecified; F32.9 Major depressive disorder, single episode, unspecified; Z85.42 Personal history of malignant neoplasm of other parts of uterus
CPT/HCPCS: 52332; 71046; 76000; J1100; J1580; J2001; J2405; Q9967; C2617